=== PATIENT | female | born 1985 | race Caucasian/White ===

== ENCOUNTER 2021-02-07 12:02 | Outpatient (CLI) | payer OTHER | END 2021-02-07 12:03 | disposition home or self-care (01) | LOC: CSHMAMMO 12:02 | PROVIDERS: ATTEND Nurse Practitioner Family | DX: Z12.31 Encounter for screening mammogram for malignant neoplasm of breast (principal) | CPT/HCPCS: 77063; 77067 ==

== ENCOUNTER 2021-11-15 09:18 | Outpatient (CLI) | payer BC ==
[2021-11-15 12:11] LABS: Bilirubin Neg (Negative); Blood, Urine 250 (Negative); Clarity Clear (Clear); Glucose, Urine (Dipstick) Normal (Negative); Ketone, Urine Negative (Negative); Leukocyte Negative (Negative); Nitrite Negative (Negative); Protein, Urine (Dipstick) Negative (Neg-Trace); Urobilinogen Normal mg/dL (Less than 2)
[2021-11-15 12:13] LABS: Hemoglobin 13.6 g/dL (12.0-15.5); Mean Corpuscular HGB CONC 31.9 g/dL (32.0-36.0); Mean Corpuscular Hemoglobin 28.5 pg (27.0-33.0); Mean Corpuscular Volume 89.1 fl (81.6-98.3); Mean Platelet Volume 10.5 fl (7.4-10.4); Platelet Count 379 10x3/uL (150-450); RBC Distribution Width 13.3 % (11.5-14.5); Red Blood Cell (RBC) Count 4.78 10x6/uL (3.90-5.03); White Blood Cell (WBC) Count 7.6 10x3/uL (3.5-10.5)
[2021-11-15 12:26] LABS: Bacteria/HPF None Seen HPF (None Seen); Squamous Epithelial 0-3 HPF (0-3); WBC/HPF 0-3 HPF (0-3)
[2021-11-15 12:44] LABS: BHCG - Serum Negative (NEGATIVE); Pregs Control Background? CLEAR/WHITE (CLR/WHITE); Pregs Control Bar Appear? YES (CONTROL BAR)
[2021-11-15 21:05] LABS: SARS-CoV-2 PCR by NAA Not Detected (NotDetected)
== END 2021-11-15 09:19 | disposition home or self-care (01) ==
LOC: CSHLAB 09:18
PROVIDERS: ATTEND Obstetrics & Gynecology
DX: Z01.812 Encounter for preprocedural laboratory examination (principal); Z20.822 Contact with and (suspected) exposure to COVID-19; R10.2 Pelvic and perineal pain; N94.5 Secondary dysmenorrhea; N85.2 Hypertrophy of uterus; N80.0 Endometriosis of uterus
CPT/HCPCS: 81003; 81015; 84703; 85027; U0003; U0005

== ENCOUNTER 2021-11-19 06:29 | Day surgery (SDC) | payer BC ==
[2021-11-07 10:51] VITALS: BMI 35.2
[~2021-11-19 06:29] MED LIST: Dexamethasone 20 MG/5 ML VIAL ONE; Glycopyrrolate 0.2 MG/ML 5 ML SYRINGE ONE; Ketorolac Tromethamine 30 MG/ML VIAL ONE; Lidocaine 2% PF 5 ML VIAL ONE; Metoclopramide HCl 10 MG/2 ML VIAL ONE; Ondansetron PF 4 MG/2 ML Vial ONE; PROPOFOL 20 ML ONE; Rocuronium Bromide 10 MG/ML (10ML VIAL) ONE; ePHEDrine Sulfate 50 MG/10 ML VIAL ONE
[2021-11-19] MEDS ORDERED: Acetaminophen 500 MG TAB ONE (06:36)
[2021-11-19] MEDS ORDERED: EPINEPHrine 1 MG/ML AMP ONE (06:47)
[2021-11-19] MEDS ORDERED: Bupivacaine PF 0.5% 30 ML VIAL ONE (06:47)
[2021-11-19] MEDS ORDERED: Lidocaine 1% MPF 2 ML VIAL ONE (06:52)
[2021-11-19] MEDS ORDERED: Fentanyl 100 MCG/2 ML VIAL ONE ×3 (06:52→10:21)
[2021-11-19] MEDS ORDERED: Midazolam HCl 2 mg/2 ml Vial ONE (06:52)
[2021-11-19] MEDS ORDERED: ceFAZolin 2 GM/Dextrose 50 ML IVPB ONE (07:06)
[2021-11-19] MEDS ORDERED: Phenylephrine 10 MG/ML VIAL ONE (07:40)
[2021-11-19] MEDS ORDERED: Simethicone Chewable 80 MG TAB PO PRN (09:55)
[2021-11-19] MEDS ORDERED: Ondansetron PF 4 MG/2 ML Vial IVP PRN (09:55)
[2021-11-19] MEDS ORDERED: Lactated Ringer's 1,000 ML IV SCH (09:55)
[2021-11-19] MEDS ORDERED: HYDROcodone/Acetaminophen 10/325 mg Tablet PO PRN ×2 (09:55)
[2021-11-19] MEDS ORDERED: HYDROcodone/Acetaminophen 10/325 mg Tablet ONE (10:09)
[2021-11-19] MEDS ORDERED: Morphine 4 MG/ML VIAL SLOW IVP PRN (10:25)
[2021-11-19] MEDS ORDERED: Acetaminophen 500 MG TAB PO PRN (10:27)
[2021-11-19] MEDS ORDERED: Ketorolac Tromethamine 30 MG/ML VIAL IVP SCH (12:00)
[2021-11-19 13:27] LABS: Mean Corpuscular HGB CONC 32.5 g/dL (32.0-36.0); Mean Corpuscular Hemoglobin 28.6 pg (27.0-33.0); Mean Corpuscular Volume 88.1 fl (81.6-98.3); Mean Platelet Volume 9.8 fl (7.4-10.4); Platelet Count 328 10x3/uL (150-450); RBC Distribution Width 13.2 % (11.5-14.5); Red Blood Cell (RBC) Count 4.19 10x6/uL (3.90-5.03); White Blood Cell (WBC) Count 14.8 10x3/uL (3.5-10.5)
== END 2021-11-19 14:00 | disposition home or self-care (01) ==
LOC: CSHSDC 06:29
PROVIDERS: ATTEND Obstetrics & Gynecology
PROC: 0UT74ZZ Resection of Bilateral Fallopian Tubes, Percutaneous Endoscopic Approach (ICD-10-PCS; principal; 2021-11-19)
PROC: 0UT94ZZ Resection of Uterus, Percutaneous Endoscopic Approach (ICD-10-PCS; principal; 2021-11-19)
PROC: 0U544ZZ Destruction of Uterine Supporting Structure, Percutaneous Endoscopic Approach (ICD-10-PCS; principal; 2021-11-19)
PROC: 0U514ZZ Destruction of Left Ovary, Percutaneous Endoscopic Approach (ICD-10-PCS; principal; 2021-11-19)
DX: N80.0 Endometriosis of uterus (principal); N88.8 Other specified noninflammatory disorders of cervix uteri; N80.1 Endometriosis of ovary; N80.3 Endometriosis of pelvic peritoneum; N94.5 Secondary dysmenorrhea; I10 Essential (primary) hypertension; K21.9 Gastro-esophageal reflux disease without esophagitis; E66.9 Obesity, unspecified; Z68.35 Body mass index [BMI] 35.0-35.9, adult; Z79.899 Other long term (current) drug therapy; Z88.6 Allergy status to analgesic agent; Z88.8 Allergy status to other drugs, medicaments and biological substances
CPT/HCPCS: 36415; 85027; 88307; C1776; J0171; J0690; J1100; J1885; J2001; J2250; J2370; J2405; J2704; J2765; J3010; S0020

== ENCOUNTER 2023-08-13 11:39 | Outpatient (CLI) | payer BC | END 2023-08-13 11:40 | disposition home or self-care (01) | LOC: CSHRAD 11:39 | PROVIDERS: ATTEND Internal Medicine | DX: M25.562 Pain in left knee (principal) ==